=== PATIENT | male | born 1960 | race Caucasian/White ===

== ENCOUNTER → 2019-02-08 | Outpatient (CLI) | payer OTHER ==
--- NOTE | 2019-02-10 08:45 | PCVCIMAG ---
APPROVED REPORT Study performed: 02/08/2019 14:10:10 Exam: Stress Echocardiogram Indication: Chest pain , Hyperlipidemia Patient Location: Echo lab Stress Nurse: Olena Avila RN Room #: 2 Status: routine Ht: 5 ft 9 in HR: 80 bpm BP: 130/78 mmHg Rhythm: NSR Medical History Medical History: Hyperlipidemia Cardiac Risk Factors: Hyperlipidemia Previous Cardiac Procedures: none Pretest Chest Pain Characteristics: No chest pain Exercise History: Physically active Procedure The patient underwent an Exercise Stress Test using the Yoni Protocol. Blood pressure, heart rate, and EKG were monitored. An Echocardiogram was performed by copier repair technician in four stages in quad fashion. At peak stress, four selected images were obtained and placed side by side with resting images for comparison. Stress Test Details Stress Test: Exercise stress testing was performed using a Yoni protocol. HR Resting HR: 80 bpmMax Heart Rate (APMHR): 161 bpm Max HR Achieved: 190 bpmTarget HR (85% APMHR): 136 bpm % of APMHR: 118 Recovery HR: 123 bpm HR response to stress: Normal HR response to stress BP Resting BP: 130/78 mmHg Max BP: 188/80 mmHg Recovery BP: 168/80 mmHg BP response to stress: Normal blood pressure response to stress. ECG Resting ECG: Sinus Rhythm with sinus arrhythmia Stress ECG: Sinus Rhythm, nonspecific ST-T abnormalities ST Change: Horizontal ST depression,, Downsloping ST depression Maximum ST Deviation: -3.4 mm Arrhythmia: occ PACs Recovery ECG: Sinus Rhythm, nonspecific ST-T abnormalities Recovery ST Change: Eqivocally ischemic, Horizontal ST depression Recovery ST Deviation: -2.6 mm Recovery Arrhythmia: APC Clinical Reason for Termination: Maximal effort Stress Symptoms: none Exercise duration: 13 min 06 sec Highest Stage Achieved: Stage 5: 5.0 mph at 18% grade. Exercise capacity: 17.5 METs Overall Exercise Capacity for Age: Excellent Scale: Active Angina Score: None No complications. Stress ECG Conclusion Hernandez Treadmill Score is 30.0 which is Low risk. Pre-Stress Echo The resting Echocardiogram showed normal left ventricular contractility with an estimated Ejection Fraction of about 55-60%. Normal wall motion in all segments on baseline images. Post-Stress Echo The stress Echocardiogram showed normal left ventricular contractility with an estimated Ejection Fraction of about 65-70%. Normal augmentation of wall motion in all segments on post stress images. Clinical No clinical or ECG evidence for ischemia. Conclusion Clinical Response: Non-ischemic Exercise Capacity: Superior Stress ECG Response: Indeterminant Stress Echo Images: Non-ischemic No clinical or echocardiographic evidence for ischemia. EKG changes do not corrolate with any image changes. No echocardiographic evidence for exercise induced ischemia. Normal stress echocardiogram with maximal exercise stress. Normal color doppler. No stenosis or regurgitation seen in the mitral,aortic, tricuspid or pulmonic valves. <Conclusion> No clinical or echocardiographic evidence for ischemia. EKG changes do not corrolate with any image changes. No echocardiographic evidence for exercise induced ischemia. Normal stress echocardiogram with maximal exercise stress. Normal color doppler. No stenosis or regurgitation seen in the mitral,aortic, tricuspid or pulmonic valves.
== END | disposition home or self-care (01) ==
LOC: PCVCIMAG 13:45
PROVIDERS: ATTEND Internal Medicine Cardiovascular Disease
DX: I10 Essential (primary) hypertension (principal)
CPT/HCPCS: 93325; 93351